=== PATIENT | female | born 1990 | race Caucasian/White ===

== ENCOUNTER → 2017-04-25 22:07 | Observation (INO) ==
[2017-04-25 21:40] LABS: Bilirubin,Urine Negative (Negative); Blood,Urine Negative (Negative); Clarity,Urine Clear (Clear); Color,Urine Yellow (Yellow); Glucose,Urine (UA) Normal (Normal); Ketones,Urine Negative (Negative); Leukocyte Esterase,Urine Negative (Negative); Nitrite,Urine Negative (Negative); PH,Urine 6.5 pH Units (5.0-8.0); Protein,Urine Negative (Neg-Trace); Specific Gravity,Urine 1.009 (1.010-1.025); Urobilinogen,Urine Normal (Normal)
--- NOTE | 2017-04-25 23:31 | OB/GYN Progress Note ---
Date of Encounter: 04/25/17 Time of Encounter: 21:50 - Assessment and Plan (1) 26 weeks gestation of Status: Acute (2) False labor before 37 completed weeks of gestation Status: Acute Patient was seen and evaluated by RN for leaking fluid. Patient was unsure if it was urine and nitrazine test administered by RN was negative. She was sent home with appropriate tracing. Qualifiers: Trimester: second trimester Qualified Code(s): O47.02 - False labor before 37 completed weeks of gestation, second trimester Objective - Vital Signs Vital Signs: Intake and Output 04/25/17 04/25/17 04/25/17 07:59 15:59 23:59 Other: Weight 77.3 kg Patient Weight 04/25/17 23:59 Weight 77.3 kg - Labs Labs: Abnormal lab results Ur Specific [place] 1.009 (1.010-1.025) L 04/25/17 21:30
== END | disposition home or self-care (01) ==
LOC: 1NENULAB
PROVIDERS: ADMIT Obstetrics & Gynecology; ATTEND Obstetrics & Gynecology

== ENCOUNTER → 2017-07-11 22:32 | Observation (INO) ==
[2017-07-11 21:00] VITALS: BP 134/97
[2017-07-11 21:21] LABS: Bilirubin,Urine Small (Negative); Blood,Urine Negative (Negative); Clarity,Urine Cloudy (Clear); Color,Urine Dark Yellow (Yellow); Glucose,Urine (UA) Normal (Normal); Ketones,Urine Trace mg/dL (Negative); Leukocyte Esterase,Urine Negative (Negative); Nitrite,Urine Negative (Negative); Protein,Urine 100 mg/dL (Neg-Trace); Specific Gravity,Urine 1.025 (1.010-1.025); Urobilinogen,Urine Normal (Normal)
[2017-07-11 21:24] LABS: Bacteria,Urine None Seen per hpf (None-Few); Hyaline Casts,Urine None Seen per lpf (None-Few); RBC,Urine 0-3 per hpf (0-3); Squamous Epithelial Cell,Urine Many per lpf (None-Few)
[2017-07-11 21:26] LABS: Amphetamine Screen,Urine Negative ng/mL (Cutoff=1000); Barbiturate Screen,Urine Negative ng/mL (Cutoff=200); Benzodiazepines Screen,Urine Negative ng/mL (Cutoff=200); Cannabinoid Screen,Urine Negative ng/mL (Cutoff = 50); Cocaine Screen,Urine Negative ng/mL (Cutoff= 300); Opiate Screen,Urine Negative ng/mL (Cutoff=300); Phencyclidine Screen,Urine Negative ng/mL (Cutoff=25)
[2017-07-11 21:35] LABS: Amorphous Sediment,Urine Few (Few)
--- NOTE | 2017-07-19 09:24 | Discharge Summary ---
Date of Encounter: 07/11/17 Time of Encounter: 22:15 - Discharge Diagnosis (1) 37 weeks gestation of Priority: Secondary Status: Acute (2) False labor before 37 completed weeks of gestation Priority: Primary Status: Resolved Qualifiers: Trimester: third trimester Qualified Code(s): O47.03 - False labor before 37 completed weeks of gestation, third trimester - Discharge Medications Home Medications: Formula Tablet 1 tab PO DAILY 07/11/17 [History] Subutex 8 mg SL BID 07/11/17 [History] Ondansetron HCl [Zofran] 1 tab PO Q6HR PRN 07/16/17 [History] Docusate [Colace] 100 mg PO BID PRN #60 capsule 07/19/17 [Rx] Ibuprofen [Motrin] 600 mg PO Q6HR PRN #60 tab 07/19/17 [Rx] Allergies/Adverse Reactions: 3 Allergy/AdvReac Type Severity Reaction Status Date / Time No Known Allergies Allergy Verified 12/29/16 00:30 Data Procedures and tests throughout hospitalization: Laboratory Tests 07/11/17 07/11/17 21:12 21:12 Urine Color Dark Yellow Urine Clarity Cloudy A Urine pH 6.0 Ur Specific [place] 1.025 Urine Protein 100 H Urine Glucose (UA) Normal Urine Ketones Trace H Urine Blood Negative Urine Nitrite Negative Urine Bilirubin Small H Urine Urobilinogen Normal Ur Leukocyte Esterase Negative Urine Microscopic RBC 0-3 Urine Microscopic WBC 3-5 H Ur Squamous Epith Cells Many H Amorphous Sediment Few Urine Bacteria None Seen Hyaline Casts None Seen Urine Yeast Test Not Performed Ur Culture Indicated? NO Urine Opiates Screen Negative Ur Barbiturates Screen Negative Ur Phencyclidine Scrn Negative Ur Amphetamines Screen Negative U Benzodiazepines Scrn Negative Urine Cocaine Screen Negative U Marijuana (THC) Screen Negative Date of admission: 07/11/17 20:39 Primary care physician: PCP NONE - Patient Status Disposition: Home, Self-Care Condition: Good Overall status at discharge: patient is back to baseline - Discharge Instructions Follow Up With: NONE,PCP [Primary Care Provider] - Additional Instructions: LABOR AND DELIVERY DISCHARGE INSTRUCTIONS Signs and Symptoms to be Reported to your Doctor Immediately: * Sudden gush, continuous or intermittent lead of fluid from vagina (note the time of gush and color of fluid) * Onset of bright red vaginal bleeding with or without pain (if you had a vaginal exam during this visit you may notice some dark red spotting. This is normal.) * Contractions that are 5 minutes apart (from the beginning of one contraction to the beginning of the next) and last 45-60 seonds; contractions that you can no longer walk, talk or laugh through. * A change in the baby's activity. This could be an increase or decrease in activity. * Severe headache which does not go away with tylenol. * Sudden swelling in the face, hands, arms and/or legs. * Upper abdominal pain - sometimes associated with heartburn or nausea and is not relieved by Maalox, Mylanta or Tums. * Kick Counts __ One hour after a meal, lay down on one side in a quiet place. Count the number of time the baby moves during an hour. If less than 6 movements, notify your physician Diet: *Force fluids, 8 to 10 tall glasses of fluid per day - may include popsicles and jello *Limit caffeine - this includes chocolate, coffee, tea, any soft drink containing such as all chris, [place] Yellow and Mountain Dew - Diet and Activity Activity: increase activity as tolerated Diet: advance to your usual diet Hospital Course STRATEGIES ANALYST Time Attestation: Total time spent providing and/or coordinating discharge services: Exam - Constitutional Vitals: per nurses Temp Pulse Resp BP 97.4 F L 83 15 134/97 07/11/17 20:50 07/11/17 20:50 07/11/17 20:50 07/11/17 20:50 - VTE Reasons for not Prescribing Prophylaxis: Treatment not Indicated - Low risk for VTE - Attending Attestation campos soto md facog
== END | disposition home or self-care (01) ==
LOC: 1NENULAB
PROVIDERS: ADMIT Advanced Practice Midwife; ATTEND Advanced Practice Midwife